=== PATIENT | male | born 1985 | race Caucasian/White ===

== ENCOUNTER → 2017-07-08 | Outpatient (CLI) | payer OTHER ==
--- NOTE | 2017-07-08 19:19 | MR ---
EXAMINATION TYPE: MR shoulder RT wo con DATE OF EXAM: 07/08/2017 COMPARISON: Right shoulder x-ray June 20, 2017 history of recent injury per patient. HISTORY: Rt shoulder pain per order. TECHNIQUE: Multiplanar, multisequence imaging of the right shoulder is performed without contrast. FINDINGS: Rotator Cuff: Supraspinatus and infraspinatus tendons are intact. Subscapularis tendon is intact. Rot ator cuff muscle bulk is preserved. Acromioclavicular Joint: There is heterogeneous edema centered at acromioclavicular joint. This exten ds into inferior fat. No significant spurring is seen. Distal acromion morphology is unremarkable. Glenohumeral Joint: There is small glenohumeral joint effusion. There is joint space loss with promin ent calcification in the central glenoid on paracoronal image 13 correlates with x-ray. Labrum: The labrum appears grossly intact given limitation of non-arthrogram study. Biceps Tendon: The long head of biceps is in normal location within bicipital groove. Bone marrow signal: No focal abnormal marrow signal is appreciated. Other: No additional significant abnormality is appreciated. IMPRESSION: 1. No rotator cuff or labral tear is seen. 2. Acromioclavicular joint inflammatory change. 3. Moderate glenohumeral joint space loss or arthropathy.
== END | disposition home or self-care (01) ==
LOC: RADMRIMAIN 17:58
PROVIDERS: ATTEND Emergency Medicine
DX: M25.811 Other specified joint disorders, right shoulder (principal); S43.401D Unspecified sprain of right shoulder joint, subsequent encounter